=== PATIENT | male | born 1965 | race Caucasian/White ===

== ENCOUNTER 2017-11-10 15:47 | Emergency (ER) | payer BC ==
[~2017-11-10] VITALS: Ht 185.4 cm; Wt 111.1 kg
[2017-11-10 15:56] VITALS: BP 145/83
[2017-11-10] MEDS ORDERED: LIDOCAINE 1% (LOCAL ANESTH.) PF 5ml SDV ID ONE (17:15)
[2017-11-10] MEDS ORDERED: BACITRACIN TOP OINT 1 UD PKG TOP ONE (17:15)
== END 2017-11-10 19:58 | disposition home or self-care (01) ==
LOC: ER 15:47
DX: S81.812A Laceration without foreign body, left lower leg, initial encounter (principal); W26.8XXA Contact with other sharp object(s), not elsewhere classified, initial encounter; Y93.89 Activity, other specified; Y99.8 Other external cause status; Y92.89 Other specified places as the place of occurrence of the external cause
CPT/HCPCS: 12002; 73590